=== PATIENT | female | born 1995 | race Caucasian/White ===

== ENCOUNTER 2017-05-02 17:47 | Emergency (ER) | payer OTHER ==
[~2017-05-02] VITALS: Ht 157.5 cm; Wt 78.7 kg
[2017-05-02 18:02] VITALS: Ht 157.5 cm; Wt 78.7 kg
--- NOTE | 2017-05-02 19:18 | RADRPT ---
PROCEDURE: XR Chest. CLINICAL INDICATION: Chest pain. TECHNIQUE: Single frontal view. COMPARISON: None. FINDINGS: The lungs are clear. The heart size is normal. There is no pleural effusion. There is no pneumothorax. IMPRESSION: 1. Normal chest radiograph. RPTAT: QQ .Kurt Lynch MD, Date Time Electronically viewed and signed by .Kurt Lynch MD, MD on 05/02/2017 19:17 .R/
[2017-05-02] MEDS ORDERED: TRAM50TA2 PO (19:39)
[2017-05-02] MEDS ORDERED: AZIT250T94 PO (19:40)
[2017-05-02] MEDS ORDERED: IBUP-1542 PO (19:40)
--- NOTE | 2017-05-02 19:45 | ERD ---
ER Documentation Chief Complaint Chief Complaint Complains of a cough and chest wall pain x 1 week HPI This 21-year-old female presents with cough for last week. Is actually improving. She denies any measured fevers. She complains of some upper chest wall pain and upper back pain usually worse with movement it is intermittent. She also has pain in her right shoulder. She denies any history of trauma or inciting events. Syncope or seizure or calf swelling. ROS All systems reviewed and are negative except as per history of present illness. Medications Home Meds Active Scripts Azithromycin* (Zithromax*) 250 Mg Tablet, 250 MG PO .ZPACK DIRECTED, #6 TAB TAKE 500 MG (2 TABS) THE FIRST DAY THEN 250 MG (1 TAB) DAYS 2-5 Prov:AGATHA FERNANDEZ MD 05/02/17 Ibuprofen* (Ibuprofen*) 600 Mg Tablet, 600 MG PO Q6, #15 TAB Prov:AGATHA FERNANDEZ MD 05/02/17 Tramadol HCl (Tramadol HCl) 50 Mg Tablet, 50 MG PO Q4 Y for PAIN, #15 TAB Prov:AGATHA FERNANDEZ MD 05/02/17 PMhx/Soc Medical and Surgical Hx: pt denies Surgical Hx Hx Respiratory Disorders: Yes (asthma) Hx Cardiac Disorders: No Hx Alcohol Use: No Hx Substance Use: No Hx Tobacco Use: Yes Smoking Status: Light tobacco smoker Physical Exam Vitals Vital Signs Date Time Temp Pulse Resp B/P Pulse Ox O2 Delivery O2 Flow Rate FiO2 05/02/17 18:02 100.0 101 20 127/87 98 Physical Exam Const: [], [id number]. Head: Atraumatic Eyes: Normal Conjunctiva ENT: Normal External Ears, Nose and Mouth. Neck: Full range of motion..~ No meningismus. Resp: Clear to auscultation bilaterally Cardio: Regular rate and rhythm, no murmurs Abd: Soft, non tender, non distended. Normal bowel sounds Skin: No petechiae or rashes Back: No midline or flank tenderness Ext: No cyanosis, or edema Neur: Awake and alert Psych: Normal Mood and Affect Procedures/MDM Chest X-ray 1V Interpreted by me: Soft Tissue: No acute abnormalities Bones: No acute abnormalities Mediastinum/Cardiac Silhouette/Lungs: [No acute abnormalities] impression have normal 1 view chest x-ray EKG: Rate/Rhythm: [Normal Sinus Rhythm] rate equals 79 QRS, ST, T-waves: [No changes consistent w/ acute ischemia] Impression: [No evidence of ischemia or arrhythmia] patient have normal EKG Patient presents with upper diffuse chest wall pain upper back pain after resolving URI. She is low-grade fever triage. Patient may have a lingering viral illness or bronchitis. Patient discharged home with a prescription tramadol ibuprofen. She will given Zithromax and instructions to hold and take for more productive mucus. Patient should otherwise return to the ER for hemoptysis, abdominal pain, vomiting, new worsening symptoms with primary care doctor. The patient was stable with no new complaints during the ER course. Clinically, there is no current evidence to suggest meningitis, sepsis, acute abdomen, pneumonia, acute coronary syndrome, pulmonary embolism, or any other emergent condition appearing to require further evaluation or hospitalization. The patient should certainly return for any new or worsening symptoms per the aftercare instructions. They should otherwise follow-up with her primary care doctor for reevaluation this week. Departure Diagnosis: Primary Impression: Chest wall pain Condition: Stable Patient Instructions: Pleurisy, Uri, Viral, No Abx (Adult) Additional Instructions: X-ray and EKG normal. We will treat for bronchitis although may be lingering viral illness. Okay to hold antibiotics for2-4 days and take for productive mucus. Recheck otherwise for new or worsening symptoms. GAATHA FERNANDEZ MD May 02, 2017 19:45
== END 2017-05-02 19:57 | disposition home or self-care (01) ==
LOC: FTE 17:47
DX: R07.89 Other chest pain (principal); J45.909 Unspecified asthma, uncomplicated; F17.210 Nicotine dependence, cigarettes, uncomplicated
CPT/HCPCS: 71010; 93005; Z7502